=== PATIENT | male | born 1960 | race Caucasian/White ===

== ENCOUNTER 2020-10-30 07:34 | Day surgery (SDC) | payer BC ==
[~2020-10-30] VITALS: Ht 177.8 cm; Wt 103.4 kg
[2020-10-30] VITALS (13 sets, daily range): BP systolic 100–139; BP diastolic 69–91
[2020-10-30] MEDS ORDERED: diphenhydrAMINE 25mg capsule PO PRN (08:05)
[2020-10-30] MEDS ORDERED: LORazepam 0.5 MG tablet PO PRN (08:05)
[2020-10-30] MEDS ORDERED: normal saline 1,000 ML IV SCH (08:05)
[2020-10-30] MEDS ORDERED: nitroGLYCERIN 0.4mg SUBLingual tab SL PRN (08:05)
[2020-10-30] MEDS ORDERED: OMEP40CA13 PO (08:20)
[2020-10-30] MEDS ORDERED: HYDR12.55 PO (08:20)
[2020-10-30] MEDS ORDERED: ASPI81TA52 PO (08:20)
[2020-10-30] MEDS ORDERED: LISI20TA28 PO (08:20)
[2020-10-30 08:38] LABS: BASOPHILS # (AUTO) 0.1 X10'3 (0-0.2); BASOPHILS % (AUTO) 1.1 % (0-1); EOSINOPHILS # (AUTO) 0.4 X10'3 (0-0.9); EOSINOPHILS % (AUTO) 4.9 % (0-6); HEMOGLOBIN 15.8 g/dl (14.0-17.9); LYMPHOCYTES # (AUTO) 2.8 X10'3 (1.1-4.8); LYMPHOCYTES % (AUTO) 35.6 % (21-51); MEAN CORPUSCULAR HEMOGLOBIN 32.6 PG (27.0-31.0); MEAN CORPUSCULAR HGB CONC 35.2 g/dL (33.0-36.5); MEAN CORPUSCULAR VOLUME 92.7 FL (78-98); MEAN PLATELET VOLUME 8.5 FL (7.4-10.4); MONOCYTES # (AUTO) 0.6 X10'3 (0-0.9); MONOCYTES % (AUTO) 7.8 % (2-12); NEUTROPHILS # (AUTO) 3.9 X10'3 (1.8-7.7); NEUTROPHILS % (AUTO) 50.6 % (42-75); PLATELET COUNT 183 X10'3 (140-440); RED BLOOD COUNT 4.85 X10'6 (4.70-6.10); RED CELL DISTRIBUTION WIDTH 12.8 % (11.5-14.5); WHITE BLOOD COUNT 7.7 X10'3 (4.5-11.0)
[2020-10-30 08:51] LABS: ALBUMIN 3.7 G/DL (3.4-5.0); ANION GAP 11 (8-16); BLOOD UREA NITROGEN 17 MG/DL (7-18); BUN/CREATININE RATIO 18.7 (5.4-32.0); CALCIUM 8.9 MG/DL (8.5-10.1); CHLORIDE 100 MMOL/L (99-107); CREATININE 0.91 MG/DL (0.60-1.10); GLUCOSE 122 MG/DL (70-104); SODIUM 135 MMOL/L (135-145); TOTAL CARBON DIOXIDE 23.7 MMOL/L (24-32); eGFR 85 ML/MIN
[2020-10-30 08:54] LABS: POTASSIUM 3.7 MMOL/L (3.5-5.1)
[2020-10-30 09:08] LABS: PARTIAL THROMBOPLASTIN TIME 29 SECONDS (22-32)
[2020-10-30] MEDS ORDERED: iohexol 350MG/ML 100ml bottle IV ONE (10:18)
[2020-10-30] MEDS ORDERED: iohexol 350 MG/ML 50ML vial IV ONE (10:18)
[2020-10-30] MEDS ORDERED: midazolam 1 mg/ML 2ml injection ONE ×2 (10:18→10:58)
[2020-10-30] MEDS ORDERED: fentaNYL/PF 50MCG/1 ML 2ML syringe ONE ×2 (10:18→10:53)
[2020-10-30] MEDS ORDERED: LIDOcaine 1% (10mg/ml)w/preservative injection 20ml MDV ONE (10:18)
[2020-10-30] MEDS ORDERED: heparin 1,000 UNITS/NS 500ml 500 ML ONE (10:18)
[2020-10-30] MEDS ORDERED: pneumococcal 23-VAL P-sac vacc 25 mcg/0.5ml vial IMVAC ONE (12:00)
[2020-10-30] MEDS ORDERED: ondansetron/PF 4mg/2ml inj IV PRN (12:05)
[2020-10-30] MEDS ORDERED: OXAZEpam 15mg capsule PO PRN (12:15)
[2020-10-30] MEDS ORDERED: proCHLORperazine 10 MG/2 ml inj IV PRN (12:15)
[2020-10-30] MEDS ORDERED: HYDROcodone/acetaminophen 10/325mg tab PO PRN (12:15)
[2020-10-30] MEDS ORDERED: HYDROcodone/acetaminophen 5mg/325mg tablet PO PRN (12:15)
== END 2020-10-30 18:00 | disposition home or self-care (01) ==
LOC: SSTAY O 07:34
PROVIDERS: ATTEND Internal Medicine Cardiovascular Disease
DX: R94.39 Abnormal result of other cardiovascular function study (principal); I25.10 Atherosclerotic heart disease of native coronary artery without angina pectoris; E11.40 Type 2 diabetes mellitus with diabetic neuropathy, unspecified; I10 Essential (primary) hypertension; I42.9 Cardiomyopathy, unspecified; E78.5 Hyperlipidemia, unspecified; M47.9 Spondylosis, unspecified; Z79.01 Long term (current) use of anticoagulants; Z87.891 Personal history of nicotine dependence; Z79.899 Other long term (current) drug therapy; Z79.82 Long term (current) use of aspirin
CPT/HCPCS: 36415; 71046; 71250; 80048; 85025; 85610; 85730; 93005; 93458; 99152; C1760; C1769; J1644; J2001; J2250; J3010; Q9967; 99153; A4620; A6258